=== PATIENT | female | born 1965 | race Caucasian/White ===

== ENCOUNTER 2016-06-08 15:31 | Emergency (ER) | payer MEDICAID ==
[~2016-06-08 15:31] MED LIST: ASPIR 8181 MG PO; LIPI10 PO
[2016-06-08 18:20] LABS: BASOPHIL % 0.9 % (0-2); PLATELET COUNT 279 x10^3mcL (130-400); RED CELL DISTRIBUTION WIDTH 14.3 % (11.5-14.5)
[2016-06-08 18:24] LABS: CALCIUM 8.4 mg/dL (8.5-10.1); CARBON DIOXIDE 27.9 mmol/L (21-32); CHLORIDE SERUM 106 mmol/L (98-107); CREATININE SERUM 0.7 mg/dL (0.6-1.0); GFR1 > 60 mL/min; GLUCOSE SERUM 106 mg/dL (74-106); POTASSIUM SERUM 3.3 mmol/L (3.5-5.1); SODIUM SERUM 144 mmol/L (136-145)
[2016-06-08 18:28] LABS: ALBUMIN 3.8 g/dL (3.4-5.0); ALKALINE PHOSPHATASE 101 U/L (46-116); ALT/SGPT 30 U/L (14-59); AMYLASE 45 U/L (25-115); AST/SGOT 21 U/L (15-37); BILIRUBIN TOTAL 0.33 mg/dL (0.20-1.00); LIPASE 118 IU/L (73-393); TOTAL PROTEIN, SERUM 7.5 g/dL (6.4-8.2)
[2016-06-08 19:11] LABS: microscopic required? YES; urine erythrocyte NEGATIVE (NEGATIVE)
[2016-06-08 19:25] LABS: AMPHETAMINE QUAL UR NONE DETECTED (NEG <=1000)
[2016-06-08 19:51] VITALS: BP 133/83
== END 2016-06-08 19:51 | disposition home or self-care (01) ==
LOC: ED 15:31
PROVIDERS: Emergency Medicine
DX: S29.012A Strain of muscle and tendon of back wall of thorax, initial encounter (principal); E87.6 Hypokalemia; Z79.899 Other long term (current) drug therapy; X58.XXXA Exposure to other specified factors, initial encounter; Y93.89 Activity, other specified; Y92.89 Other specified places as the place of occurrence of the external cause; Y99.8 Other external cause status
CPT/HCPCS: 80307; 85378; G0480; J1100; J1885

== ENCOUNTER 2016-07-17 11:57 | Emergency (ER) | payer MEDICAID | END 2016-07-17 13:12 | disposition left against medical advice (07) | LOC: ED 11:57 | DX: Z53.21 Procedure and treatment not carried out due to patient leaving prior to being seen by health care provider (principal) ==

== ENCOUNTER 2016-12-07 11:52 | Emergency (ER) | payer SELFPAY ==
[2016-12-07 12:04] VITALS: BP 117/74
== END 2016-12-07 13:36 | disposition home or self-care (01) ==
LOC: ED 11:52
DX: J06.9 Acute upper respiratory infection, unspecified (principal)
CPT/HCPCS: J7512

== ENCOUNTER 2017-04-18 11:55 | Emergency (ER) | payer MEDICAID ==
[~2017-04-18] VITALS: Ht 162.6 cm; Wt 86.2 kg
[2017-04-18 12:49] VITALS: BP 147/81; Ht 162.6 cm; Wt 86.2 kg
== END 2017-04-18 14:02 | disposition home or self-care (01) ==
LOC: ED 11:55
DX: H60.93 Unspecified otitis externa, bilateral (principal)

== ENCOUNTER 2017-05-02 00:36 | Emergency (ER) | payer MEDICAID ==
[~2017-05-02] VITALS: Ht 162.6 cm; Wt 87.1 kg
[2017-05-02 00:41] VITALS: Ht 162.6 cm; Wt 87.1 kg
[2017-05-02 03:02] LABS: BASOPHIL % 0.4 % (0-2); PLATELET COUNT 313 x10^3mcL (130-400); RED CELL DISTRIBUTION WIDTH 13.9 % (11.5-14.5)
[2017-05-02 03:03] LABS: CALCIUM 8.4 mg/dL (8.5-10.1); CHLORIDE SERUM 104 mmol/L (98-107); CREATININE SERUM 0.7 mg/dL (0.6-1.0); GFR1 > 60 mL/min; GLUCOSE SERUM 121 mg/dL (74-106); POTASSIUM SERUM 3.5 mmol/L (3.5-5.1); SODIUM SERUM 139 mmol/L (136-145)
[2017-05-02 03:07] LABS: ALBUMIN 3.5 g/dL (3.4-5.0); ALKALINE PHOSPHATASE 101 U/L (46-116); ALT/SGPT 24 U/L (14-59); AST/SGOT 16 U/L (15-37); BILIRUBIN TOTAL 0.1 mg/dL (0.20-1.00); TOTAL PROTEIN, SERUM 7.1 g/dL (6.4-8.2)
[2017-05-02 06:55] VITALS: BP 131/80
== END 2017-05-02 06:55 | disposition home or self-care (01) ==
LOC: ED 00:36
PROVIDERS: Emergency Medicine
DX: R07.89 Other chest pain (principal); F41.9 Anxiety disorder, unspecified
CPT/HCPCS: 36415; 83880; 85378; Q0092

== ENCOUNTER 2019-09-04 22:56 | Emergency (ER) | payer MEDICAID ==
[~2019-09-04] VITALS: Ht 162.6 cm; Wt 87.5 kg
[2019-09-04 23:03] VITALS: Ht 162.6 cm; Wt 87.5 kg
[2019-09-04 23:52] LABS: BASOPHIL % 0.5 % (0-2); PLATELET COUNT 269 x10^3mcL (130-400); RED CELL DISTRIBUTION WIDTH 13.6 % (11.5-14.5)
[2019-09-04 23:54] LABS: CALCIUM 8.3 mg/dL (8.5-10.1); CARBON DIOXIDE 25.1 mmol/L (21-32); CHLORIDE SERUM 103 mmol/L (98-107); CREATININE SERUM 0.7 mg/dL (0.6-1.0); GFR1 > 60 mL/min; GLUCOSE SERUM 110 mg/dL (74-106); POTASSIUM SERUM 3.2 mmol/L (3.5-5.1); SODIUM SERUM 138 mmol/L (136-145)
[2019-09-05 00:09] LABS: FREE T4 1.13 ng/dL (0.76-1.46)
[2019-09-05 00:27] VITALS: BP 145/85
== END 2019-09-05 00:27 | disposition home or self-care (01) ==
LOC: ED 22:56
PROVIDERS: Student in an Organized Health Care Education/Training Program
DX: I49.3 Ventricular premature depolarization (principal); E87.6 Hypokalemia; R00.2 Palpitations
CPT/HCPCS: 83880; 84439